=== PATIENT | male | born 1990 | race Caucasian/White ===

== ENCOUNTER 2016-05-12 21:16 | Emergency (ER) | payer OTHER ==
--- NOTE | 2016-05-12 23:29 | EDDOCDS ---
Nurse's Notes [facility] Name: Shahbaz Gilbert Age: 25 yrs Sex: Male : 1990 Arrival Date: 05/12/2016 Time: 21:16 Bed PR Private MD: Roland Qureshi Diagnosis: Contusion of left hand Presentation: 05/12 21:26 Presenting complaint: Patient states: punched a concrete floor a month ago. reports of rs3 Left medial hand pain gets worse with cold. Adult Sepsis Screening: The patient does not have new or worsening altered mentation. Patient's respiratory rate is less than 22. Systolic blood pressure is greater than 100. Patient has a qSOFA score of 0- Negative Sepsis Screen. Suicide/Homicide risk assessment- the patient denies having any suicidal and/or homicidal ideations and does not present with any other emotional, behavioral or mental health complaints. 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 Transition of care: patient was not received from another setting of care. 21:26 Acuity: AFSANEH Level 4 rs3 21:26 Method Of Arrival: Walkin/Carried/Asstd rs3 Triage Assessment: 21:29 General: Appears in no apparent distress. Pain: Location: medial aspect of left hand. rs3 HIV screening NA for this visit Offered previously. Musculoskeletal: Reports Pain is 5 out of 10 on a pain scale. Historical: - Allergies: no known allergies; - Home Meds: 1. none - PMHx: none; - PSHx: none; - Social history: Smoking status: Patient states former smoker of tobacco. No barriers to communication noted, The patient speaks fluent Kazakh. - Family history: Not pertinent. - : The pt / caregiver states he / she is not on anticoagulants. Home medication list is obtained from the patient. - Exposure Risk Screening:: None identified. Screenin:27 Screening information is obtained from the patient. Fall risk: No risks identified. cz Assistance ADL's: requires no assistance with activities of daily living. Abuse/DV Screen: The patient / caregiver reports he/she is: not in a situation that causes fear, pain or injury. Nutritional screening: No deficits noted. home support is adequate. Assessment: 23:27 General: alert male with left hand pain no abnormality noted. cz Vital Signs: 21:18 BP 121 / 69; Pulse 72; Resp 16; Temp 97.9; Pulse Ox 96% ; Weight 74.84 kg; Height 5 ft. elp 8 in. (172.72 cm); 23:26 BP 116 / 73; Pulse 62; Resp 16; Temp 96.5(T); Pulse Ox 99% on R/A; cz 21:18 Body Mass Index 25.09 (74.84 kg, 172.72 cm) elp Vitals: 21:18 Log In Time: May 12, 2016 at 21:16. elp ED Course: 21:18 Patient visited by Tabitha Prince PCA. elp 21:18 Roland Qureshi DO is Private Physician. elp 21:18 Patient moved to Waiting elp 21:19 Patient visited by Tabitha Prince PCA. elp 21:19 Patient moved to Pre RCE elp 21:29 Triage Initiated rs3 22:23 Patient moved to Triage 2 mdr 22:32 [facility] ck7 22:32 Albert Henderson DO is Attending Physician. ck7 22:32 Patient visited by Arian Jones RPA-C. ck7 22:53 Patient moved to TR2 jo3 23:15 Patient visited by Arian Jones RPA-C. ck7 23:19 [facility] is Referral Physician. ck7 23:20 Patient moved to PR1 / 25 cz 23:23 [facility] Payment Agreement was scanned into [employer] and attached to record. ks16 23:27 The patient / caregiver is instructed regarding the plan of care and ED course. cz 23:27 No IV's were initiated during this patient's visit. No procedures done that require cz assistance. Order Results: There are currently no results for this order. Outcome: 23:19 Discharge ordered by Provider. ck7 23:26 Discharge Assessment: Patient awake, alert and oriented x 3. No cognitive and/or cz functional deficits noted. Patient verbalized understanding of disposition instructions. patient administered narcotics - no. The following High Risk Discharge criteria are identified: None. Discharged to home ambulatory. Condition: stable. Discharge instructions given to patient, Instructed on discharge instructions, follow up and referral plans. medication usage, Demonstrated understanding of instructions, medications, Pt was receptive of discharge instructions/ teaching. Prescriptions given X 1. No special radiology studies were completed. Property :Personal belongings accompany Pt. 23:28 Patient left the ED. cz Signatures: Reece Ray, RN RN Cely Cortes RN RN toro3 Karlee MendezRN RN rs3 Arian Jones, RPA-C RPA-Cck7 Niki, Tabitha, SALES CLERK SUPERVISOR SALES CLERK SUPERVISOR elp Edmond Rolle, SALES CLERK SUPERVISOR SALES CLERK SUPERVISOR mdr Dayna Cleaning, Reg Reg [email or web address] Corrections: (The following items were deleted from the chart) 21:30 21:26 Presenting complaint: Patient states: punched a concrete floor a month ago. rs3 reports of Left lateral hand pain gets worse with cold rs3 MTDD
--- NOTE | 2016-05-12 23:29 | EDDOCDS ---
Physician Documentation [facility] Name: Shahbaz Gilbert Age: 25 yrs Sex: Male : 1990 Arrival Date: 05/12/2016 Time: 21:16 Bed Private MD: Roland Qureshi Disposition: 05/12/16 23:19 Discharged to Home/Self Care. Impression: Contusion of left hand. - Condition is Stable. - Discharge Instructions: Hand Contusion. - Prescriptions for Ibuprofen 600 mg Oral Tablet - take 1 tablet by ORAL route every 6 hours As needed take with food; 30 tablet. - Medication Reconciliation, Local Pharmacy Hours form. - Follow up: [facility]; When: 2 - 3 days; Reason: Recheck today's complaints, Continuance of care. - Problem is new. - Symptoms have improved. - Notes: USE MOTRIN TO THE HAND, FOLLOW UP WITH ORTHOPEDICS, RETURN TO THE ER IF THE SYMPTOMS WORSEN OR BECOME CONCERNING Historical: - Allergies: no known allergies; - Home Meds: 1. none - PMHx: none; - PSHx: none; - Social history: Smoking status: Patient states former smoker of tobacco. No barriers to communication noted, The patient speaks fluent Malian. - Family history: Not pertinent. - : The pt / caregiver states he / she is not on anticoagulants. Home medication list is obtained from the patient. - Exposure Risk Screening:: None identified. Vital Signs: 05/12 21:18 BP 121 / 69; Pulse 72; Resp 16; Temp 97.9; Pulse Ox 96% ; Weight 74.84 kg / 164.99 lbs; elp Height 5 ft. 8 in. (172.72 cm); 23:26 BP 116 / 73; Pulse 62; Resp 16; Temp 96.5(T); Pulse Ox 99% on R/A; cz 21:18 Body Mass Index 25.09 (74.84 kg, 172.72 cm) elp MDM: 22:51 Hand, Complete Ordered. EDMS 23:23 Financial registration complete. ks16 23:23 [facility] Payment Agreement was scanned into [employer] and attached to record. [email or web address] Signatures: Dispatcher [employer] EDMS Reece Ray RN RN Karlee Moura RN RN rs3 Arian Jones RPA-C RPA-Cck7 Dayna Cleaning, Reg Reg ks16 The chart was reviewed and I authenticate all verbal orders and agree with the evaluation and treatment provided.Attachments: 23:23 [facility] Payment Agreement ks16 MTDD
--- NOTE | 2016-05-13 00:57 | REP ---
Clinical: Trauma. Deformity and swelling. Technique: AP, lateral, bilateral oblique views left hand . Findings: The osseous structures and joint spaces are intact and normal. There is no evidence for acute fracture or dislocation. Surrounding soft tissues are unremarkable. No subcutaneous emphysema or radiodense foreign body. Impression: Normal examination. No acute fracture or dislocation. Signed by Allen Boss MD 05/13/2016 12:48 A
--- NOTE | 2016-05-15 00:29 | EDDOCDS ---
Nurse's Notes [facility] Name: Shahbaz Gilbert Age: 25 yrs Sex: Male : 1990 Arrival Date: 05/12/2016 Time: 21:16 Bed PR Private MD: Roland Qureshi Diagnosis: Contusion of left hand Presentation: 05/12 21:26 Presenting complaint: Patient states: punched a concrete floor a month ago. reports of rs3 Left medial hand pain gets worse with cold. Adult Sepsis Screening: The patient does not have new or worsening altered mentation. Patient's respiratory rate is less than 22. Systolic blood pressure is greater than 100. Patient has a qSOFA score of 0- Negative Sepsis Screen. Suicide/Homicide risk assessment- the patient denies having any suicidal and/or homicidal ideations and does not present with any other emotional, behavioral or mental health complaints. 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 Transition of care: patient was not received from another setting of care. 21:26 Acuity: AFSANEH Level 4 rs3 21:26 Method Of Arrival: Walkin/Carried/Asstd rs3 Triage Assessment: 21:29 General: Appears in no apparent distress. Pain: Location: medial aspect of left hand. rs3 HIV screening NA for this visit Offered previously. Musculoskeletal: Reports Pain is 5 out of 10 on a pain scale. Historical: - Allergies: no known allergies; - Home Meds: 1. none - PMHx: none; - PSHx: none; - Social history: Smoking status: Patient states former smoker of tobacco. No barriers to communication noted, The patient speaks fluent Slovenian. - Family history: Not pertinent. - : The pt / caregiver states he / she is not on anticoagulants. Home medication list is obtained from the patient. - Exposure Risk Screening:: None identified. Screenin:27 Screening information is obtained from the patient. Fall risk: No risks identified. cz Assistance ADL's: requires no assistance with activities of daily living. Abuse/DV Screen: The patient / caregiver reports he/she is: not in a situation that causes fear, pain or injury. Nutritional screening: No deficits noted. home support is adequate. Assessment: 23:27 General: alert male with left hand pain no abnormality noted. cz Vital Signs: 21:18 BP 121 / 69; Pulse 72; Resp 16; Temp 97.9; Pulse Ox 96% ; Weight 74.84 kg; Height 5 ft. elp 8 in. (172.72 cm); 23:26 BP 116 / 73; Pulse 62; Resp 16; Temp 96.5(T); Pulse Ox 99% on R/A; cz 21:18 Body Mass Index 25.09 (74.84 kg, 172.72 cm) elp Vitals: 21:18 Log In Time: May 12, 2016 at 21:16. elp ED Course: 21:18 Patient visited by Tabitha Prince PCA. elp 21:18 Roland Qureshi DO is Private Physician. elp 21:18 Patient moved to Waiting elp 21:19 Patient visited by Tabitha Prince PCA. elp 21:19 Patient moved to Pre RCE elp 21:29 Triage Initiated rs3 22:23 Patient moved to Triage 2 mdr 22:32 A[facility]C [facility] ck7 22:32 Albert Henderson DO is Attending Physician. ck7 22:32 Patient visited by Arian Jones RPA-C. ck7 22:53 Patient moved to TR2 jo3 23:15 Patient visited by Arian Jones RPA-C. ck7 23:19 [facility] is Referral Physician. ck7 23:20 Patient moved to PR1 / 25 cz 23:23 [facility] Payment Agreement was scanned into [employer] and attached to record. ks16 23:27 The patient / caregiver is instructed regarding the plan of care and ED course. cz 23:27 No IV's were initiated during this patient's visit. No procedures done that require assistance. 05/13 01:18 Hand, Complete Returned. EDMS 11:23 T-Sheet-- Draft Copy was scanned into [employer] and attached to record. gb Order Results: Radiology Order: Hand, Complete Test: Hand, Complete REASON FOR EXAMINATION: Deformity/Swelling; Clinical: Trauma. Deformity and swelling.; ; Technique: AP, lateral, bilateral oblique views left hand .; ; Findings: The osseous structures and joint spaces are intact and normal. There; is no evidence for acute fracture or dislocation. Surrounding soft tissues are; unremarkable. No subcutaneous emphysema or radiodense foreign body.; ; Impression:; Normal examination. No acute fracture or dislocation.; ; ; Signed by; Allen Boss MD 05/13/2016 12:48 A; Outcome: 05/12 23:19 Discharge ordered by Provider. ck7 23:26 Discharge Assessment: Patient awake, alert and oriented x 3. No cognitive and/or cz functional deficits noted. Patient verbalized understanding of disposition instructions. patient administered narcotics - no. The following High Risk Discharge criteria are identified: None. Discharged to home ambulatory. Condition: stable. Discharge instructions given to patient, Instructed on discharge instructions, follow up and referral plans. medication usage, Demonstrated understanding of instructions, medications, Pt was receptive of discharge instructions/ teaching. Prescriptions given X 1. No special radiology studies were completed. Property :Personal belongings accompany Pt. 23:28 Patient left the ED. cz Signatures: Dispatcher [employer] EDMS Reece Ray RN RN cz Deyanira Merida, Reg Reg gb Cely Spencer RN RN jo3 Soosairaj, Rosemary, RN RN rs3 Arian Jones, RPA-C RPA-Cck7 Tabitha Prince, HOISTER HOISTER elp Edmond Rolle, HOISTER HOISTER mdr Dayna Cleaning, Reg Reg ks16 Corrections: (The following items were deleted from the chart) 21:30 21:26 Presenting complaint: Patient states: punched a concrete floor a month ago. rs3 reports of Left lateral hand pain gets worse with cold rs3 Chart Complete MTDD
--- NOTE | 2016-05-15 00:29 | EDDOCDS ---
Physician Documentation [facility] Name: Shahbaz Gilbert Age: 25 yrs Sex: Male : 1990 Arrival Date: 05/12/2016 Time: 21:16 Bed Private MD: Roland Qureshi Disposition: 05/12/16 23:19 Discharged to Home/Self Care. Impression: Contusion of left hand. - Condition is Stable. - Discharge Instructions: Hand Contusion. - Prescriptions for Ibuprofen 600 mg Oral Tablet - take 1 tablet by ORAL route every 6 hours As needed take with food; 30 tablet. - Medication Reconciliation, Local Pharmacy Hours form. - Follow up: [facility]; When: 2 - 3 days; Reason: Recheck today's complaints, Continuance of care. - Problem is new. - Symptoms have improved. - Notes: USE MOTRIN TO THE HAND, FOLLOW UP WITH ORTHOPEDICS, RETURN TO THE ER IF THE SYMPTOMS WORSEN OR BECOME CONCERNING Historical: - Allergies: no known allergies; - Home Meds: 1. none - PMHx: none; - PSHx: none; - Social history: Smoking status: Patient states former smoker of tobacco. No barriers to communication noted, The patient speaks fluent Lebanese. - Family history: Not pertinent. - : The pt / caregiver states he / she is not on anticoagulants. Home medication list is obtained from the patient. - Exposure Risk Screening:: None identified. Vital Signs: 05/12 21:18 BP 121 / 69; Pulse 72; Resp 16; Temp 97.9; Pulse Ox 96% ; Weight 74.84 kg / 164.99 lbs; elp Height 5 ft. 8 in. (172.72 cm); 23:26 BP 116 / 73; Pulse 62; Resp 16; Temp 96.5(T); Pulse Ox 99% on R/A; cz 21:18 Body Mass Index 25.09 (74.84 kg, 172.72 cm) elp MDM: 22:51 Hand, Complete Ordered. EDMS 23:23 Financial registration complete. ks 23:23 [facility] Payment Agreement was scanned into [employer] and attached to record. [email or web address] 05/13 11:23 T-Sheet-- Draft Copy was scanned into [employer] and attached to record. gb Signatures: Dispatcher [employer] EDMS Reece Ray CARLOS RN cz Deyanira Merida, Reg Reg gb Karlee Mendez RN RN rs3 Arian Jones, RPA-C RPA-Cck7 Dayna Cleaning, Reg Reg ks16 The chart was reviewed and I authenticate all verbal orders and agree with the evaluation and treatment provided.Attachments: 05/12 23:23 [facility] Payment Agreement [email or web address] 05/13 11:23 T-Sheet-- Draft Copy gb Chart Complete MTDD
--- NOTE | 2016-05-15 00:30 | EDDOCDS ---
Physician Documentation [facility] Name: Shahbaz Gilbert Age: 25 yrs Sex: Male : 1990 Arrival Date: 05/12/2016 Time: 21:16 Bed Private MD: Roland Qureshi Disposition: 05/12/16 23:19 Discharged to Home/Self Care. Impression: Contusion of left hand. - Condition is Stable. - Discharge Instructions: Hand Contusion. - Prescriptions for Ibuprofen 600 mg Oral Tablet - take 1 tablet by ORAL route every 6 hours As needed take with food; 30 tablet. - Medication Reconciliation, Local Pharmacy Hours form. - Follow up: [facility]; When: 2 - 3 days; Reason: Recheck today's complaints, Continuance of care. - Problem is new. - Symptoms have improved. - Notes: USE MOTRIN TO THE HAND, FOLLOW UP WITH ORTHOPEDICS, RETURN TO THE ER IF THE SYMPTOMS WORSEN OR BECOME CONCERNING Historical: - Allergies: no known allergies; - Home Meds: 1. none - PMHx: none; - PSHx: none; - Social history: Smoking status: Patient states former smoker of tobacco. No barriers to communication noted, The patient speaks fluent Afghan. - Family history: Not pertinent. - : The pt / caregiver states he / she is not on anticoagulants. Home medication list is obtained from the patient. - Exposure Risk Screening:: None identified. Vital Signs: 05/12 21:18 BP 121 / 69; Pulse 72; Resp 16; Temp 97.9; Pulse Ox 96% ; Weight 74.84 kg / 164.99 lbs; elp Height 5 ft. 8 in. (172.72 cm); 23:26 BP 116 / 73; Pulse 62; Resp 16; Temp 96.5(T); Pulse Ox 99% on R/A; cz 21:18 Body Mass Index 25.09 (74.84 kg, 172.72 cm) elp MDM: 22:51 Hand, Complete Ordered. EDMS 23:23 Financial registration complete. ks 23:23 [facility] Payment Agreement was scanned into [employer] and attached to record. [email or web address] 05/13 11:23 T-Sheet-- Draft Copy was scanned into [employer] and attached to record. gb Signatures: Dispatcher [employer] EDMS Reece Ray CARLOS RN cz Deyanira Merida, Reg Reg gb Karlee Mendez RN RN rs3 Arian Jones, RPA-C RPA-Cck7 Dayna Cleaning, Reg Reg ks16 The chart was reviewed and I authenticate all verbal orders and agree with the evaluation and treatment provided.Attachments: 05/12 23:23 [facility] Payment Agreement [email or web address] 05/13 11:23 T-Sheet-- Draft Copy gb Chart Complete MTDD
== END 2016-05-12 23:28 | disposition home or self-care (01) ==
LOC: M ED 21:16
DX: S60.221A Contusion of right hand, initial encounter (principal); W22.09XA Striking against other stationary object, initial encounter; Y92.018 Other place in single-family (private) house as the place of occurrence of the external cause; Y93.89 Activity, other specified; Y99.8 Other external cause status